=== PATIENT | male | born 1945 ===

== ENCOUNTER → 2017-03-23 | Outpatient (CLI) | payer BC ==
--- NOTE | 2017-03-23 09:28 | KCIC ---
MR of the left hand without contrast HISTORY: Palpable lump at the palm of the hand for 6 months. Pain. TECHNIQUE: Routine multiplanar sequences are obtained. FINDINGS: A skin marker localizes area of concern. There is an underlying soft tissue mass, located immediately anterior to the fourth flexor tendon at the level of the base of the proximal fourth phalanx. This measures 18 mm x 12 mm x 11 mm. This demonstrates mostly hyperintense T2 signal with some internal low signal. The mass has well-defined margins. The underlying fourth flexor tendon is slightly displaced laterally but otherwise intact. No acute fracture or aggressive bone destruction. Small lesion within the distal third metacarpal head is compatible with a cyst. No significant joint effusion. IMPRESSION: Soft tissue mass along the anteromedial fourth finger flexor tendon. Appearance is very nonspecific. Possible diagnoses include giant cell tumor of the tendon sheath or schwannoma. Malignant etiology, such as a malignant fibrous histiocytoma, is also possible. Electronically signed by: Nehemiah Heart MD (03/23/2017 9:24 AM) [email or web address]
== END | disposition home or self-care (01) ==
LOC: KCIC MRI 07:41
PROVIDERS: ATTEND Orthopaedic Surgery Sports Medicine
DX: M79.642 Pain in left hand (principal)
CPT/HCPCS: 73218